=== PATIENT | female | born 1995 | race Two or more races ===

== ENCOUNTER 2022-07-15 20:08 | Emergency (ER) | payer MEDICAID, OTHER ==
[~2022-07-15] VITALS: Ht 170.2 cm; Wt 138.4 kg
[2022-07-15] MEDS ORDERED: ACETAMINOPHEN 500 MG TAB PO ONE (20:30)
[2022-07-15 21:07] LABS: Basophils # (auto) 0.1 10 ^3/uL (0-0.2); Basophils % (auto) 0.6 % (0.0-2.0); Eosinophils # (auto) 0.2 10 ^3/uL (0-0.8); Eosinophils % (auto) 1.6 % (0.0-7.0); Hematocrit 37.4 % (36.0-46.0); Hemoglobin 12.7 g/dL (12.2-16.2); Lymphocytes # (auto) 2.6 10 ^3/uL (0.4-5.4); Lymphocytes % (auto) 25.1 % (10.0-50.0); Mean Corpuscular Hemoglobin 27.8 pg (28.0-32.0); Mean Corpuscular Hgb Conc. 33.9 g/dL (32.0-36.0); Mean Corpuscular Volume 82.1 fL (80.0-100.0); Monocytes # (auto) 0.6 10 ^3/uL (0-1.3); Monocytes % (auto) 5.4 % (0.0-12.0); Neutrophils % (auto) 67.3 % (37.0-80.0); Nucleated Red Blood Cells % 0.1 %; Red Blood Cells 4.55 10^6/uL (4.0-5.20); Red Cell Distribution Width 13.5 % (11.8-14.3); White Blood Cell 10.5 10^3/uL (4.4-10.8)
[2022-07-15 21:15] LABS: Calcium 8.2 mg/dL (8.5-10.1); Potassium 3.3 mmol/L (3.5-5.1)
[2022-07-15 21:18] LABS: Albumin 3.6 g/dL (3.4-5.0); BUN/Creatinine Ratio 12.8; INR 0.98 (0.9-1.15)
[2022-07-15 21:21] LABS: Bilirubin, Total 0.2 mg/dL (0.2-1.0)
[2022-07-15 21:44] LABS: Urine Bacteria NONE SEEN /hpf (None Seen); Urine Blood 3+ /uL (Negative); Urine Specific Gravity 1.012 (1.001-1.035); Urine WBC 13 /hpf (0 - 5)
[2022-07-15] MEDS ORDERED: ACET-1158 PO (23:27)
[2022-07-15] MEDS ORDERED: NITR-87 PO (23:27)
[2022-07-15 23:47] VITALS: BP 130/73
== END 2022-07-15 23:49 | disposition home or self-care (01) ==
LOC: ER 20:08
DX: N92.5 Other specified irregular menstruation (principal); N39.0 Urinary tract infection, site not specified; Z32.02 Encounter for pregnancy test, result negative
CPT/HCPCS: 36415; 76830; 76856; 80053; 81001; 81025; 85025; 85610; 86850; 86900; 86901